=== PATIENT | female | born 1980 | race African-American/Black ===

== ENCOUNTER 2017-03-11 10:21 | Emergency (ER) | payer OTHER ==
[~2017-03-11] VITALS: Ht 154.9 cm; Wt 93.9 kg
[2017-03-11] MEDS ORDERED: PERCOCET 10-321 EACH PO (10:36)
[2017-03-11] MEDS ORDERED: FLEXERIL PO (10:37)
[2017-03-11] MEDS ORDERED: LEVOTHYROXIN0.125 M1 PO (10:37)
[2017-03-11] MEDS ORDERED: PRILOSEC 20 MG20 MG PO (10:38)
[2017-03-11] MEDS ORDERED: TOBRAMYCIN-DEXAM5 ML OPHTHALMIC (10:39)
[2017-03-11 11:22] LABS: HEMOGLOBIN 13.7 gm/dL (12.0-15.0); MCH 28.5 pg (26.0-34.0); MCHC 34.3 g/dL (28.0-37.0); MCV 83.1 fL (80.0-100.0); PLATELET COUNT 155 thou/uL (150-400); RBC 4.81 mil/uL (4.20-5.00); RDW 13.4 % (10.5-14.5); WBC 5.2 thou/uL (4.0-11.0)
[2017-03-11 11:26] LABS: MANUAL DIFF YES
[2017-03-11 11:31] LABS: CALCIUM 8.3 mg/dL (8.5-10.1); POTASSIUM 3.1 mmol/L (3.5-5.1)
[2017-03-11 12:00] LABS: ABSOLUTE NEUTROPHILS 2.6 thou/uL (1.4-8.2); METAMYELOCYTES 1 %; PLATELET ESTIMATE NORMAL; TOTAL CELL COUNT 100
[2017-03-11 12:46] VITALS: BP 120/90
== END 2017-03-11 12:51 | disposition home or self-care (01) ==
LOC: ER 10:21
PROVIDERS: Emergency Medicine
DX: R42 Dizziness and giddiness (principal); H10.9 Unspecified conjunctivitis; M32.9 Systemic lupus erythematosus, unspecified; Z88.5 Allergy status to narcotic agent

== ENCOUNTER 2018-02-28 12:30 | Emergency (ER) | payer OTHER ==
[~2018-02-28] VITALS: Ht 154.9 cm; Wt 80.3 kg
--- NOTE | ~2018-02-28 | EKG ---
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 03/01/18 1258 1350 1350 Thaddeus Linda MD, FACC /EPI
[~2018-02-28 12:30] MED LIST: FLEXERIL PO; LEVOTHYROXIN0.125 M1 PO; PERCOCET 10-321 EACH PO; PRILOSEC 20 MG20 MG PO; TOBRAMYCIN-DEXAM5 ML OPHTHALMIC
[2018-02-28 14:37] LABS: ABSOLUTE NEUTROPHILS 2.7 thou/uL (1.4-8.2); BASOPHILS 0.8 % (0.0-2.0); EOSINOPHILS 2.1 % (0.0-3.0); HEMATOCRIT 39.5 % (37.0-47.0); HEMOGLOBIN 13.4 gm/dL (12.0-15.0); LYMPHOCYTES 34.1 % (24.0-44.0); MCH 27.5 pg (26.0-34.0); MCHC 33.9 g/dL (28.0-37.0); MCV 81.1 fL (80.0-100.0); MONOCYTES 11.2 % (1.0-8.0); PLATELET COUNT 134 thou/uL (150-400); POLYS 51.8 % (36.0-66.0); RBC 4.87 mil/uL (4.20-5.00); RDW 14.2 % (10.5-14.5); WBC 5.2 thou/uL (4.0-11.0)
[2018-02-28 14:53] LABS: CALCIUM 8.5 mg/dL (8.5-10.1); CREATININE 0.9 mg/dL (0.6-1.0)
[2018-02-28 14:56] LABS: POTASSIUM 2.9 mmol/L (3.5-5.1)
[2018-02-28 14:59] LABS: ALBUMIN 3.6 g/dL (3.4-5.0); TOTAL BILIRUBIN 0.4 mg/dL (<0.1-1.0); TOTAL PROTEIN 6.4 g/dL (6.4-8.2)
[2018-02-28] MEDS ORDERED: VENTOLIN HFA 1818 GM INH ×2 (15:34→16:49)
[2018-02-28] MEDS ORDERED: TESSALON PERLE100 MG PO (15:34)
[2018-02-28] MEDS ORDERED: LEVAQUIN 500 M500 M2 PO ×2 (15:34→16:49)
[2018-02-28] MEDS ORDERED: MEDROLDOSEPACK PO ×2 (15:34→16:49)
[2018-02-28] MEDS ORDERED: [UNRECOGNIZED DRUG - OTHER] PO (16:15)
[2018-02-28 17:05] VITALS: BP 113/76
== END 2018-02-28 17:12 | disposition home or self-care (01) ==
LOC: ER 12:30
PROVIDERS: Nurse Practitioner Family
DX: J40 Bronchitis, not specified as acute or chronic (principal); E87.6 Hypokalemia; R11.10 Vomiting, unspecified; M32.9 Systemic lupus erythematosus, unspecified; K21.9 Gastro-esophageal reflux disease without esophagitis; Z86.2 Personal history of diseases of the blood and blood-forming organs and certain disorders involving the immune mechanism; Z88.8 Allergy status to other drugs, medicaments and biological substances